=== PATIENT | female | born 1945 | race Caucasian/White ===

== ENCOUNTER → 2021-08-10 | Outpatient (CLI) | payer MEDICARE ==
[~2021-08-10] MED LIST: CEFUROXIME500 MG PO
== END ==
LOC: EXRD 09:05
DX: M85.80 Other specified disorders of bone density and structure, unspecified site (principal)
CPT/HCPCS: 77080

== ENCOUNTER 2021-12-13 17:39 | Observation (INO) | payer MEDICARE ==
[~2021-12-13] VITALS: Ht 152.4 cm; Wt 59.0 kg
[2021-12-13 18:04] LABS: HEMOGLOBIN 13.2 gm/dl (12.3-15.3); RED BLOOD COUNT 4.18 M/UL (4.00-5.10); WHITE BLOOD COUNT 8.5 K/UL (4.5-11.0)
[2021-12-14 05:56] LABS: HEMOGLOBIN 12.9 gm/dl (12.3-15.3); RED BLOOD COUNT 4.12 M/UL (4.00-5.10); WHITE BLOOD COUNT 7.3 K/UL (4.5-11.0)
[2021-12-14 06:19] LABS: BUN/CREATININE RATIO 11 (0-10)
[2021-12-14] MEDS ORDERED: HYDROCHLOROTH12.5 M1 PO (12:26)
[2021-12-14] MEDS ORDERED: TRAMADOL HCL50 MG PO (12:26)
[2021-12-14] MEDS ORDERED: DIAZEPAM5 MG PO (12:27)
[2021-12-14] MEDS ORDERED: CARVEDILOL3.125 MG PO (12:27)
[2021-12-14] MEDS ORDERED: SULINDAC150 MG PO (12:27)
[2021-12-14] MEDS ORDERED: LISINOPRIL40 MG PO (12:27)
[2021-12-14] MEDS ORDERED: METHOCARBAMOL500 MG PO (12:28)
[2021-12-14] MEDS ORDERED: PREDNISONE5 MG PO (12:28)
[2021-12-14] MEDS ORDERED: NEXIUM20 MG PO (12:29)
[2021-12-14] MEDS ORDERED: MULTIVITAMIN1 EACH PO (12:29)
[2021-12-14] MEDS ORDERED: VITAMIN D3125 MCG PO (12:29)
[2021-12-14] MEDS ORDERED: VITAMIN C1000 MG PO (12:29)
[2021-12-14] MEDS ORDERED: CALCIUM CARBON600 M1 PO (12:31)
[2021-12-14] MEDS ORDERED: ASPIRIN EC81 MG PO (17:08)
[2021-12-15 06:11] LABS: HBSAG SCREEN Negative (Negative); HCV AB <0.1 (0.0-0.9); HEP A AB, IGM Negative (Negative); HEP B CORE AB, IGM Negative (Negative)
== END 2021-12-14 17:25 | disposition home or self-care (01) ==
LOC: ER1 17:39 → CDU 21:21 → MED SURG 4 21:21
PROVIDERS: Nurse Practitioner; ADMIT Internal Medicine
DX: R07.89 Other chest pain (principal); R74.01 Elevation of levels of liver transaminase levels; K82.4 Cholesterolosis of gallbladder; I10 Essential (primary) hypertension; K21.9 Gastro-esophageal reflux disease without esophagitis; I27.20 Pulmonary hypertension, unspecified; M15.9 Polyosteoarthritis, unspecified; R94.31 Abnormal electrocardiogram [ECG] [EKG]; H57.89 Other specified disorders of eye and adnexa; Z98.890 Other specified postprocedural states; Z88.1 Allergy status to other antibiotic agents; Z88.8 Allergy status to other drugs, medicaments and biological substances
CPT/HCPCS: ECHO; 0240U; 36415; 71045; 76705; 78452; 80053; 80061; 80074; 82550; 82553; 82977; 83036; 83735; 83880; 84439; 84443; 84484; 85025; 93005; 93017; 93306; 96374; 99285; A9502; G0378; J2405; J2785; Q9967